=== PATIENT | male | born 1965 | race Caucasian/White ===

== ENCOUNTER 2025-02-13 12:51 | Emergency (ER) | payer MEDICAID ==
[~2025-02-13] VITALS: Ht 185.4 cm; Wt 75.0 kg
[2025-02-13 15:05] LABS: BASOPHILS # (AUTO) 0.1 X10'3 (0-0.2); BASOPHILS % (AUTO) 0.8 % (0-1); EOSINOPHILS # (AUTO) 0.2 X10'3 (0-0.9); HEMATOCRIT 39.5 % (42.0-52.0); HEMOGLOBIN 13.6 g/dl (14.0-17.9); LYMPHOCYTES % (AUTO) 39.9 % (21-51); MEAN CORPUSCULAR HEMOGLOBIN 30.7 PG (27.0-31.0); MEAN CORPUSCULAR HGB CONC 34.4 g/dL (33.0-36.5); MEAN CORPUSCULAR VOLUME 89.2 FL (78-98); MEAN PLATELET VOLUME 7.8 FL (7.4-10.4); MONOCYTES # (AUTO) 0.6 X10'3 (0-0.9); MONOCYTES % (AUTO) 7.5 % (2-12); NEUTROPHILS # (AUTO) 3.7 X10'3 (1.8-7.7); NEUTROPHILS % (AUTO) 48.8 % (42-75); PLATELET COUNT 209 X10'3 (140-440); RED BLOOD COUNT 4.43 X10'6 (4.70-6.10); RED CELL DISTRIBUTION WIDTH 13.6 % (11.5-14.5); WHITE BLOOD COUNT 7.5 X10'3 (4.5-11.0)
--- NOTE | 2025-02-13 16:22 | RADIOLOGY REPORT ---
Exam: US ULTRASOUND OF ABDOMEN Clinical History: henria Comparison: None Technique: Targeted sonographic evaluation of the soft tissues of the abdominal wall was obtained utilizing gra yscale and color Doppler imaging. Findings/Impression: There is no evidence for drainable collection. There is no evidence for solid or cystic mass in the site. No vascular abnormalities identified at this site. No umbilical hernia is visualized.
[2025-02-13 16:35] LABS: ALANINE AMINOTRANSFERASE 20 U/L (12-78); ALBUMIN 3.9 G/DL (3.4-5.0); ALBUMIN/GLOBULIN RATIO 1.4 (1.1-1.5); ALKALINE PHOSPHATASE 85 IU/L (46-116); ANION GAP 10 (8-16); ASPARTATE AMINO TRANSFERASE 11 U/L (10-37); BILIRUBIN,TOTAL 0.4 MG/DL (0.1-1.0); BLOOD UREA NITROGEN 9 MG/DL (7-18); BUN/CREATININE RATIO 11.5 (10.0-20.0); CALCIUM 8.4 MG/DL (8.5-10.1); CHLORIDE 102 MMOL/L (99-107); CREATININE 0.78 MG/DL (0.60-1.10); GLUCOSE 92 MG/DL (70-104); LIPASE 27 U/L (16-77); POTASSIUM 3.5 MMOL/L (3.5-5.1); SODIUM 141 MMOL/L (135-145); TOTAL CARBON DIOXIDE 28.8 MMOL/L (24-32); TOTAL PROTEIN 6.7 G/DL (6.4-8.2); eCRCL 107 ML/MIN; eGFR > 90 ML/MIN
--- NOTE | 2025-02-13 16:51 | Physician Documentation ---
History of Present Illness Chief Complaint: Abdominal Pain Stated Complaint: ABD PAIN Time Seen by MD: 13:25 Mode of Arrival: EMS, Stretcher HPI Patient presents with chronic umbilical pain which he describes as bulge at times. States it moves and hurts more when lifting.. States he has have his bowel movements are currently normal continues to pass gas. Denies severe pain .reports waxing and waning pain Medication Reconciliation Allergies: Coded Allergies: codeine (Verified Allergy, Unknown, 02/13/25) ITCHING . Uncoded Allergies: TAPE (Allergy, Unknown, ITCHING ,RASH ,SWELLING, 02/13/25) Past Medical History Smoking Status: Never smoker Review of Systems All Other Systems at this time: Reviewed and Negative ROS As stated above in the HPI, otherwise all systems are reviewed and negative. Physical Exam Vital Signs: Temperature: 98.4, Heart Rate: 78, Respiratory Rate: 20, BP: 118/77, Pulse Oximetry: 100, Weight: 75.000 Oxygen Flow Rate: 0 Physical Exam General: Alert, no apparent distress. Cardiovascular: Regular rate and rhythm, no murmurs. Gastrointestinal: Soft, mildly tender around the umbilicus, no obvious bulges or protrusions Psychiatric: Normal mood and affect. Skin: Normal color, warm and dry. No edema, no ecchymosis. Progress Results/Orders Results/Orders Orders - [facility] DRAPERY AND UPHOLSTERY MEASURER Urinalysis, Cult If Indicated (02/13/25 14:45) Ultrasound Of Abdomen (02/13/25 15:15) Completed Orders - [facility] DRAPERY AND UPHOLSTERY MEASURER Cbc/Diff (02/13/25 14:45) BMP (02/13/25 14:45) Lipase (02/13/25 14:45) CMP (02/13/25 14:45) Ultrasound Of Abdomen (02/13/25 15:15) Vital Signs 02/13/25 02/13/25 02/13/25 02/13/25 13:03 15:30 15:30 15:49 Temp 98.4 98.4 98.4 Pulse 73 78 Resp 14 20 18 B/P (MAP) 124/74 145/65 (91) 118/77 (91) Pulse Ox 100 99 100 O2 Flow Rate 0 0 0 Laboratory Tests Test 02/13/25 14:54 White Blood Count 7.5 Red Blood Count 4.43 L Hemoglobin 13.6 L Hematocrit 39.5 L Mean Corpuscular Volume 89.2 Mean Corpuscular Hemoglobin 30.7 Mean Corpuscular Hemoglobin Concent 34.4 Red Cell Distribution Width 13.6 Platelet Count 209 Mean Platelet Volume 7.8 Neutrophils (%) (Auto) 48.8 Lymphocytes (%) (Auto) 39.9 Monocytes (%) (Auto) 7.5 Eosinophils (%) (Auto) 3.0 Basophils (%) (Auto) 0.8 Neutrophils # (Auto) 3.7 Lymphocytes # (Auto) 3.0 Monocytes # (Auto) 0.6 Eosinophils # (Auto) 0.2 Basophils # (Auto) 0.1 CBC Comment Sodium Level 141 Potassium Level 3.5 Chloride Level 102 Carbon Dioxide Level 28.8 Anion Gap 10 Blood Urea Nitrogen 9 Creatinine 0.78 Estimated GFR/1.73 m2 > 90 BUN/Creatinine Ratio 11.5 Glucose Level 92 Calcium Level 8.4 L Total Bilirubin 0.4 Aspartate Amino Transf (AST/SGOT) 11 Alanine Aminotransferase (ALT/SGPT) 20 Alkaline Phosphatase 85 Total Protein 6.7 Albumin 3.9 Globulin 2.8 Albumin/Globulin Ratio 1.4 Lipase 27 Chemistry Comments Medical Decision Making Findings Patient's laboratory values were very reassuring and his ultrasound did not show any breaks in the abdominal wall cavity.. Based on his complaint in my exam I still am concerned that he may have a small umbilical hernia. However he does not present with any concerns of incarceration or strangulation. Discussed this with the patient and his they meet criteria for outpatient therapy and further evaluation along with further imaging Differential Dx:Considerations: Include: AAA, Angina/MT, Aortic dissection, Appendicitis, Bowel obstruction, Cholangitis, Cholelithasis, Constipation, Diverticular disease, Esophageal rupture, Esophagitis, Gastritis/PUD, Gastroenteritis, GI hemorrhage, Hernia, Hepatitis, Inflammatory BD, Ischemic bowel, Pancreatitis, Porphyria, Testicular torsion, Trauma, intraabdominal, Urinary obstruction, Urinary tract infection, Urolithiasis, Other Departure Disposition: 01 HOME / SELF CARE / HOMELESS Impression: Primary Impression: Abdominal pain Discharge Instructions: Abdominal Pain (Nonspecific) Additional Instructions: As instructed I recommend that she follow up in the outpatient setting for further evaluation. I do suspect you have a small nonemergent umbilical hernia.. We will require a referral from your primary care to go see a general surgeon and also some additional imaging Referrals: NO PRIMARY CARE PROVIDER (PCP) Education Educated: Patient Educated regarding: diagnosis Signature Scribe Signature: y Attestation: The note accurately reflects work and decisions made by me.Ted Pack NP 02/13/25 18:19 TED RICH NP February 13, 2025 16:51
[2025-02-13 17:53] VITALS: BP 112/72; PULSE 86; RESP 18; TEMP 98.4; O2SAT 99
== END 2025-02-13 17:55 | disposition home or self-care (01) ==
LOC: ER 12:52
DX: R10.84 Generalized abdominal pain (principal); Z88.5 Allergy status to narcotic agent
CPT/HCPCS: 36415; 76705; 80053; 83690; 85025; 99284

== ENCOUNTER 2025-07-05 14:27 | Outpatient (CLI) | payer MEDICAID ==
--- NOTE | 2025-07-05 15:14 | RADIOLOGY REPORT ---
Indication: UMBILICAL HERNIA WITHOUT OBSTRUCTION OR GANGRENE Technique: CT axial images of the abdomen and pelvis are obtained without contrast. Coronal and sagittal reformats were obtained. Radiation Dose Information: CTDI volume is 11 mGy. Dose-length product is 497 mGy*cm Comparison: None FINDINGS: There is limited interpretation of the abdomen and pelvis without administration of intravenous contrast. Lung bases demonstrate no pleural effusion. Adrenal glands, pancreas unremarkable in shape. Splenic calcifications consistent with remote granulomatous disease. Liver unremarkable in shape. No CT evidence for cholelithiasis. Hepatomegaly. 8 mm right hepatic lobe cysts. The kidneys demonstrate no hydronephrosis / nephrolithiasis. Stomach is partially distended. Small bowel loops are normal in caliber. Moderate volume stool throughout the colon. Normal appendix. Abdominal aortic atherosclerotic disease. Bladder distended. No free pelvic fluid. No inguinal lymphadenopathy. Postsurgical changes left posterior acetabulum. Moderate thoracolumbar degenerative disc disease. 4 mm anterolisthesis L4 upon L5. L4 pars defects. IMPRESSION: Limited evaluation without contrast. No definitive umbilical hernia identified. No hydronephrosis / nephrolithiasis. No bowel obstruction L4 pars defects, 4 mm anterolisthesis L4 upon L5. Other findings as described
== END 2025-07-05 23:59 | disposition home or self-care (01) ==
LOC: RAD 14:27
PROVIDERS: ATTEND Surgery
DX: R16.0 Hepatomegaly, not elsewhere classified (principal); K76.89 Other specified diseases of liver; K31.89 Other diseases of stomach and duodenum; K42.9 Umbilical hernia without obstruction or gangrene; K40.90 Unilateral inguinal hernia, without obstruction or gangrene, not specified as recurrent; R10.9 Unspecified abdominal pain; I70.0 Atherosclerosis of aorta; M51.35 Other intervertebral disc degeneration, thoracolumbar region; M43.16 Spondylolisthesis, lumbar region
CPT/HCPCS: 74176